=== PATIENT | female | born 1975 | race Caucasian/White ===

== ENCOUNTER 2018-05-09 08:06 | Day surgery (SDC) | payer BC, OTHER ==
[~2018-05-09 08:06] MED LIST: Lactated Ringers 1,000 ML IV SCH; Lidocaine 1% 6 ML ONE; Lidocaine 1%/Sod Bicarbonate in NS 8.4% 1 ML Syringe IDERM PRN; Propofol 200 MG/20 ML SDV ONE; Sodium Chloride 0.9% 10 ML Syringe FLUSH PRN; fentaNYL 100 MCG/2 ML SDV ONE
--- NOTE | 2018-05-09 08:46 | PCM.PREANE ---
Preanesthetic Assessment - Anesthesia/Transfusion/Family Hx Anesthesia History: Prior Anesthesia Without Reaction Family History of Anesthesia Reaction: No - Review of Systems General: No Symptoms Pulmonary: No Symptoms Cardiovascular: Other (SVT associated with caffine use. Feels fluttering occasionally. Does not take medication for management. Avoids Caffeine use.) Gastrointestinal: No Symptoms Neurological: No Symptoms Other: Reports: None - Physical Assessment NPO Status Date: 05/09/17 NPO Status Time: 07:15 (Prep) O2 Sat by Pulse Oximetry: 99 Respiratory Rate: 16 Vital Signs: Last Vital Signs Temp 36.8 C 05/09/18 08:20 Pulse 56 L 05/09/18 08:20 Resp 16 05/09/18 08:20 BP 110/65 05/09/18 08:20 Pulse Ox 99 05/09/18 08:20 ASA Class: 2 Mental Status: Alert & Oriented x3 Airway Class: Mallampati = 1 Dentition: Reports: Normal Dentition Thyro-Mental Finger Breadths: 3 Mouth Opening Finger Breadths: 3 ROM/Head Extension: Full Lungs: Clear to Auscultation, Normal Respiratory Effort Cardiovascular: Regular Rate, Regular Rhythm - Imaging/EKG Impressions: EKG pending. - Allergies Allergies/Adverse Reactions: Allergies Allergy/AdvReac Type Severity Reaction Status Date / Time No Known Allergies Allergy Verified 05/09/18 08:42 - Acknowledgements Anesthesia Type Planned: MAC Pt an Appropriate Candidate for the Planned Anesthesia: Yes Alternatives and Risks of Anesthesia Discussed w Pt/Guardian: Yes Pt/Guardian Understands and Agrees with Anesthesia Plan: Yes PreAnesthesia Questionnaire HEENT History: Reports: Impaired Vision, Other (See Below) Other HEENT History: wears glasses Cardiovascular History: Reports: Arrhythmia Respiratory History: Reports: None Gastrointestinal History: Reports: Chronic Constipation, Other (See Below) Other Gastrointestinal History: abdominal pain [employer] 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 Ablation, Other (See Below) Other OB/BYN History: pelvic pain, ovarian cyst Musculoskeletal History: Reports: None Neurological History: Reports: None Psychiatric History: Reports: None Endocrine/Metabolic History: Reports: None Hematologic History: Reports: None Immunologic History: Reports: None Oncologic (Cancer) History: Reports: None Dermatologic History: Reports: None - Past Surgical History Head Surgeries/Procedures: Reports: None HEENT Surgical History: Reports: Oral Surgery Cardiovascular Surgical History: Reports: None Respiratory Surgical History: Reports: None GI Surgical History: Reports: None Female Surgical History: Reports: D&C, Other (See Below) Other Female Surgeries/Procedures: bladder surgery Endocrine Surgical History: Reports: None Neurological Surgical History: Reports: None Musculoskeletal Surgical History: Reports: None Oncologic Surgical History: Reports: None - SUBSTANCE USE Smoking Status *Q: Never Smoker Recreational Drug Use History: No - HOME MEDS Home Medications: Home Meds . [No Known Home Meds] 05/08/18 [History] - CURRENT (IN HOUSE) MEDS Current Meds: Current Medications Lactated Ringer's (Ringers, Lactated) 1,000 mls @ 125 mls/hr IV ASDIRECTED ALEJANDRO Stop: 05/09/18 23:00 Last Admin: 05/09/18 08:35 Dose: 125 mls/hr Lidocaine/Sodium Bicarbonate (Buffered Lidocaine 1% In Ns 8.4%) 0.25 ml IDERM ONETIME PRN PRN Reason: Prior to IV Start Stop: 05/09/18 18:00 Last Admin: 05/09/18 08:35 Dose: 0.25 ml Sodium Chloride (Saline Flush) 10 ml FLUSH ASDIRECTED PRN PRN Reason: Keep Vein Open Stop: 05/09/18 18:00 Discontinued Medications Fentanyl (Sublimaze) Confirm Administered Dose 100 mcg .ROUTE .STK-MED ONE Stop: 05/09/18 07:00 Lidocaine HCl (Xylocaine-Mpf 1%) Confirm Administered Dose 6 mls @ as directed .ROUTE .STK-MED ONE Stop: 05/09/18 07:00 Propofol (Diprivan 20 Ml) Confirm Administered Dose 200 mg .ROUTE .STK-MED ONE Stop: 05/09/18 07:00
[2018-05-09] MEDS ORDERED: Lactated Ringers 1,000 ML ONE (09:47)
[2018-05-09] MEDS ORDERED: Ondansetron 4 MG/2 ML SDV IVPUSH PRN (09:51)
[2018-05-09] MEDS ORDERED: Propofol 200 MG/20 ML SDV ONE ×2 (09:56→10:12)
--- NOTE | 2018-05-09 10:21 | PCM48HPAN ---
Post Anesthesia Note - EVALUATION WITHIN 48HRS OF ANESTHETIC Vital Signs in Normal Range: Yes Patient Participated in Evaluation: Yes Respiratory Function Stable: Yes Airway Patent: Yes Cardiovascular Function Stable: Yes Hydration Status Stable: Yes Pain Control Satisfactory: Yes Nausea and Vomiting Control Satisfactory: Yes Mental Status Recovered: Yes
--- NOTE | 2018-05-09 10:22 | PCM.OPNOTE ---
- General Post-Op/Procedure Note Date of Surgery/Procedure: 05/09/18 Operative Procedure(s): colonoscopy, screening Findings: Normal colonoscopy Pre Op Diagnosis: family history of colon polyps Post-Op Diagnosis: Same Anesthesia Technique: MAC Primary Surgeon: Titi Lew Anesthesia Provider: Petra Cervantes Complications: None Condition: Good Free Text/Narrative:: Indications for surgery: The patient is 42 yo female, FHx of colon polyps (age 50's in both mother and father), here for initial screening colonoscopy. She was consented for colonoscopy with possible biopsy. Indications, risks, and benefits were discussed with the patient in detail. Description of procedure: After surgical consent was verified, the patient was brought to the main OR. A surgical time-out was performed to verify proper patient and proper procedure. Anesthesia performed monitored anesthesia care. A digital rectal exam was performed, which was normal. The colonoscope was inserted into the anus and advanced through the colon to the terminal ileum Location of the cecum was confirmed by presence of the appendiceal orifice and by presence of the ileocecal valve. The scope was then withdrawn, with inspection of the colonic mucosa.Retroflexion was performed in the rectum. The remainder of the colon and rectum was normal. Withdrawal time was 6 minutes. There was no blood loss. The patient tolerated the procedure well, was brought out of anesthesia, and transported to the PACU in stable condition. The prep was good. Titi Lew M.D. ([facility]), F.A.C.S. General Surgery
== END 2018-05-09 11:20 | disposition home or self-care (01) ==
LOC: JD.SDS 08:06 → MERGE 09:30 → JD.SDS 11:20
PROVIDERS: ATTEND Student in an Organized Health Care Education/Training Program
DX: Z12.11 Encounter for screening for malignant neoplasm of colon (principal); Z83.71 Family history of colonic polyps
CPT/HCPCS: 45378; 81025; 93005; J2001; J2704; J3010; J7120; 00811